=== PATIENT | male | born 1990 | race Caucasian/White ===

== ENCOUNTER 2021-10-15 21:51 | Emergency (ER) | payer SELFPAY ==
[~2021-10-15] VITALS: Ht 177.8 cm; Wt 86.0 kg
--- NOTE | 2021-10-15 22:14 | PHYS DOC ---
Adult General Chief Complaint Chief Complaint: FOREIGN BODY HPI HPI Patient is a 31-year-old male who presents with a chief complaint of thinking he may have swallowed a plastic toothpick or plastic toothpaste, not being sure. States he was sipping his coffee and thinks there was something in it but is not sure. Denies any chest pain, shortness of breath, abdominal pain, nausea, vomiting, hematemesis, blood in the stool. Review of Systems Review of Systems Review of systems otherwise unremarkable except noted in HPI Allergies Allergies Allergies Coded Allergies Type Severity Reaction Last Updated Verified No Known Drug Allergies 10/15/21 No Physical Exam Physical Exam Constitutional: Well developed, well nourished, no acute distress, non-toxic appearance. [] HENT: Normocephalic, atraumatic, bilateral external ears normal, oropharynx moist, no oral exudates, nose normal. [] Cardiovascular:Heart rate regular rhythm, no murmur [] Lungs & Thorax: Bilateral breath sounds clear to auscultation [] Abdomen: Bowel sounds normal, soft, no tenderness, no masses, no pulsatile mass es. [] Neurologic: Alert and oriented X 3, normal motor function, normal sensory function, no focal deficits noted. [] Psychologic: Affect normal, judgement normal, mood normal. [] Current Patient Data Vital Signs Vital Signs Date Time Temp Pulse Resp B/P (MAP) Pulse Ox O2 Delivery O2 Flow Rate FiO2 10/15/21 21:58 98.1 79 16 136/68 (90) 99 Room Air EKG EKG [] Radiology/Procedures Radiology/Procedures [] Heart Score C/O Chest Pain: No Risk Factors: Risk Factors: DM, Current or recent (<one month) smoker, HTN, HLP, family history of CAD, obesity. Risk Scores: Risk Factors: DM, Current or recent (<one month) smoker, HTN, HLP, family history of CAD, obesity. Course & Med Decision Making Course & Med Decision Making Patient is a 31-year-old male who presents after thinking he may have swallowed a toothpaste Or a toothpick while drinking his coffee Vital signs not concerning. Physical exam noted above. Imaging with no obvious foreign bodies. Discussed findings with patient. Gave strict return precautions to the ED. Advised to follow-up with primary care physician as needed. [] Dragon Disclaimer Dragon Disclaimer This electronic medical record was generated, in whole or in part, using a voice recognition dictation system. Departure Departure: Impression: Primary Impression: Swallowed foreign body Disposition: HOME / SELF CARE / HOMELESS Condition: GOOD Referrals: PCP,NO (PCP) LOTTIE VELAZQUEZ MD Patient Instructions: Swallowed Foreign Body, Adult Additional Instructions: Thank you for coming into the emergency department tonight and allowing us to take care of you. As we discussed if you did indeed swallowed a toothpick or toothpaste They would most likely passed. It is very important that you monitor this however as we discussed and come back in immediately with new or daja rning symptoms. Please follow-up with your primary care as needed. ANGELO DOWNEY MD Oct 15, 2021 22:14
--- NOTE | 2021-10-15 23:00 | RAD ---
Exam: Chest one view INDICATION: Swallowed foreign body TECHNIQUE: Frontal view of the chest Comparisons: None FINDINGS: The cardiomediastinal silhouette and pulmonary vessels are within normal limits. The lung and pleural spaces are clear. IMPRESSION: No acute cardiopulmonary process. No radiopaque foreign body identified. Electronically signed by: Felix Serna MD (10/15/2021 10:57 PM) DRISS
--- NOTE | 2021-10-15 23:01 | RAD ---
Exam: Abdomen one view INDICATION: Swallowed dental floss pick TECHNIQUE: Supine view the abdomen Comparisons: None FINDINGS: Air and stool are noted throughout the colon to level the rectum in a nonobstructive bowel gas patter n. No suspicious masses or calcifications. Visualized osseous structures are unremarkable. IMPRESSION: Nonobstructive bowel gas pattern. No radiopaque foreign body identified. Electronically signed by: Felix Serna MD (10/15/2021 10:58 PM) DRISS
[2021-10-15 23:06] VITALS: BP 130/64
== END 2021-10-15 23:12 | disposition home or self-care (01) ==
LOC: ER 21:51
DX: T18.9XXA Foreign body of alimentary tract, part unspecified, initial encounter (principal); X58.XXXA Exposure to other specified factors, initial encounter; Y93.89 Activity, other specified; Y92.89 Other specified places as the place of occurrence of the external cause; Y99.8 Other external cause status
CPT/HCPCS: 71045; 74018; 99284